=== PATIENT | female | born 1935 | race Caucasian/White ===

== ENCOUNTER 2021-09-21 10:51 | Emergency (ER) | payer MEDICARE ==
[~2021-09-21] VITALS: Ht 165.1 cm; Wt 62.6 kg
[2021-09-21] MEDS ORDERED: IV NORMAL SALINE 1000 ML BAG IV ONE (11:15)
--- NOTE | 2021-09-21 11:15 | NUR ---
Pt resting in [facility] in room 2B and states she feels much better now. Pt was BIB RA88 post syncopal episode at home. Pt is A/O X4, states she stood up after eating breakfast, felt dizzy and passed out. Pt states she was assisted to the floor by her caregiver. EKG done with marked sinus bradycardia in the 40's and handed to .
[2021-09-21] MEDS ORDERED: ENALAPRIL (11:18)
[2021-09-21] MEDS ORDERED: CYCLOBENZAPRINE (11:18)
[2021-09-21] MEDS ORDERED: FUROSEMIDE (11:18)
[2021-09-21] MEDS ORDERED: ISOSORBIDE (11:18)
[2021-09-21] MEDS ORDERED: OMEPRAZOLE (11:18)
[2021-09-21] MEDS ORDERED: [UNRECOGNIZED DRUG - OTHER] (11:18)
[2021-09-21] MEDS ORDERED: INSULIN SQ (11:18)
[2021-09-21] MEDS ORDERED: DILTIAZEM (11:18)
[2021-09-21] MEDS ORDERED: METFORMIN (11:18)
--- NOTE | 2021-09-21 11:20 | NUR ---
Pt to CT via [facility].
[2021-09-21 11:56] LABS: HEMATOCRIT 40.4 % (31.2-41.9); MEAN CORPUSCULAR HEMOGLOBIN 32.3 uug (24.7-32.8); MEAN CORPUSCULAR VOLUME 97.1 fL (75.5-95.3); PLATELET COUNT (AUTO) 232 K/uL (179-408)
[2021-09-21 12:02] LABS: CREATININE 1.2 mg/dL (0.6-1.3); POTASSIUM 4.3 mmol/L (3.5-5.1)
[2021-09-21 12:08] LABS: BILIRUBIN,TOTAL 0.4 mg/dL (0.2-1.0)
[2021-09-21 12:18] LABS: BILIRUBIN,DIRECT 0.1 mg/dL (0.0-0.2)
--- NOTE | 2021-09-21 13:37 | NUR ---
PT WAS D/C'd TO HOME BY DR CORTES. D/C INSTRUCTIONS GIVEN TO THE PT BY DR CORTES.
[2021-09-21 13:38] VITALS: BP 131/66
== END 2021-09-21 13:52 | disposition home or self-care (01) ==
LOC: ER 10:51
DX: R55 Syncope and collapse (principal); R42 Dizziness and giddiness; R00.1 Bradycardia, unspecified; E11.65 Type 2 diabetes mellitus with hyperglycemia; Z79.4 Long term (current) use of insulin; I48.91 Unspecified atrial fibrillation; K21.9 Gastro-esophageal reflux disease without esophagitis
CPT/HCPCS: 70030-TC; 70450; 85025; 93005; A4663; J7030